=== PATIENT | male | born 1935 | race Caucasian/White ===

== ENCOUNTER 2017-02-20 08:58 | Outpatient (CLI) | payer MEDICARE, OTHER ==
--- NOTE | 2017-02-20 09:44 | RAD ---
TWI VIEW CHEST: COMPARISON: 02/08/17. CLINICAL HISTORY: Pneumonia, infectious organism. FINDINGS: There is patchy opacification of the left lung base obscuring the left hemidiaphragm. Enlargement o f the cardiac silhouette and prominence of pulmonary vasculature is seen. There are bilateral shoul rachana prostheses partially visualized. Evidence of prior sternotomy. There is vascular calcification . IMPRESSION: 1. Patchy left basilar opacity. This may be on the basis of pneumonia, or alternatively edema with pleural fluid. 2. There is evidence to indicate decompensated congestive heart failure. Recommend clinical correl ation as well as imaging followup upon completion of treatment regimen to confirm resolution. POS: [facility]
== END 2017-02-20 08:59 | disposition home or self-care (01) ==
LOC: MADRAD 08:58
PROVIDERS: ATTEND Obstetrics & Gynecology
DX: J18.9 Pneumonia, unspecified organism (principal); J98.4 Other disorders of lung; I50.9 Heart failure, unspecified
CPT/HCPCS: 71020

== ENCOUNTER 2017-04-01 09:36 | Outpatient (CLI) | payer MEDICARE, OTHER ==
--- NOTE | 2017-04-01 11:32 | RAD ---
PA AND LATERAL CHEST: History: Congestive failure. Comparison: 02-20-17 FINDINGS: Heart size is enlarged. There are post op sternotomy changes. Some parenchymal changes in the left b ase are similar to the prior exam, there is slight elevation to the left hemidiaphragm. IMPRESSION: 1. Linear parenchymal changes in the left base suggesting of atelectasis or minimal infiltrate. This could represent scar. 2. Cardiomegaly with post op sternotomy changes. POS: [facility]
== END 2017-04-01 09:37 | disposition home or self-care (01) ==
LOC: MADRAD 09:36
PROVIDERS: ATTEND Obstetrics & Gynecology
DX: I50.42 Chronic combined systolic (congestive) and diastolic (congestive) heart failure (principal)
CPT/HCPCS: 71020

== ENCOUNTER 2018-01-31 12:08 | Emergency (ER) | payer MEDICARE, OTHER ==
[~2018-01-31 12:08] MED LIST: Sodium Chloride 0.9% 1,000 ML BAG ONE
[2018-01-31] MEDS ORDERED: Sulfameth/Trimethoprim DS 800-160mg TAB ONE ×2 (12:51→12:56)
[2018-01-31] MEDS ORDERED: Clindamycin/D5W 300 MG/50 ML BAG ONE (12:51)
--- NOTE | 2018-01-31 13:12 | RAD ---
RIGHT FOURTH FINGER 3 VIEWS: Date: 01/31/18 HISTORY: 82-year-old male with history of fever and finger swelling. FINDINGS: There is minimal soft tissue fullness of the right fourth finger. Degenerative and osteoarthrosis cristhian nges are noted. No acute fracture or other significant osseous abnormality. IMPRESSION: Minimal diffuse soft tissue swelling. Generalized degenerative changes. No fracture or other acute os seous abnormality. POS: [facility]
== END 2018-01-31 14:15 | disposition home or self-care (01) ==
LOC: MADERS 12:08
DX: L03.011 Cellulitis of right finger (principal); I11.0 Hypertensive heart disease with heart failure; I50.9 Heart failure, unspecified; E11.9 Type 2 diabetes mellitus without complications; J44.9 Chronic obstructive pulmonary disease, unspecified; M10.9 Gout, unspecified; Z87.891 Personal history of nicotine dependence
CPT/HCPCS: 96365; J3490; J7050

== ENCOUNTER 2018-09-20 16:06 | Emergency (ER) | payer MEDICARE, OTHER ==
[~2018-09-20 16:06] MED LIST changes: -Sodium Chloride 0.9% 1,000 ML BAG ONE; +Sterile Water Irrigation 250 ML BOT ONE
[2018-09-20] MEDS ORDERED: Carbamide Peroxide 6.5% Otic Drops 15 ml Bottle ONE (17:14)
== END 2018-09-20 18:20 | disposition home or self-care (01) ==
LOC: MADERS 16:06
DX: T16.1XXA Foreign body in right ear, initial encounter (principal); H60.91 Unspecified otitis externa, right ear; E11.9 Type 2 diabetes mellitus without complications; J44.9 Chronic obstructive pulmonary disease, unspecified; I11.0 Hypertensive heart disease with heart failure; I50.9 Heart failure, unspecified; M10.9 Gout, unspecified; Z87.891 Personal history of nicotine dependence
CPT/HCPCS: 69209

== ENCOUNTER 2018-10-19 10:36 | Emergency (ER) | payer MEDICARE, OTHER ==
--- NOTE | 2018-10-19 12:58 | RAD ---
LEFT WRIST 3 VIEWS: INDICATION: Left wrist pain. 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 There is a small well-circumscribed ossific densit y adjacent to the triquetrum and the ulnar styloid process may reflect a small ossicle. No definite acute fracture or subluxation is grossly evident. IMPRESSION: 1. No acute osseous abnormality. 2. Chronic findings as above. POS: [facility]
== END 2018-10-19 11:45 | disposition home or self-care (01) ==
LOC: MADERS 10:36
DX: S63.502A Unspecified sprain of left wrist, initial encounter (principal); I11.0 Hypertensive heart disease with heart failure; I50.9 Heart failure, unspecified; M10.9 Gout, unspecified; Z87.891 Personal history of nicotine dependence; E11.9 Type 2 diabetes mellitus without complications; J44.9 Chronic obstructive pulmonary disease, unspecified; W19.XXXA Unspecified fall, initial encounter